=== PATIENT | male | born 1965 | race African-American/Black ===

== ENCOUNTER 2017-05-28 09:03 | Emergency (ER) | payer BC ==
[2017-05-28 09:25] LABS: #Basophils 0.1 thou/uL (0.0-0.2); #Eosinphils 0.4 thou/uL (0.0-0.7); #Lymphocytes 1.3 thou/uL (1.20-3.40); #Monocytes 0.5 thou/uL (0.11-0.59); %Basophils 1.6 % (0.0-1.0); %Eosinophils 10.5 % (0.0-10.0); %Lymphocytes 30.3 % (21.0-51.0); %Monocytes 11.1 % (0.0-10.0); %Neutrophils 46.5 % (42.0-75.0); Hemoglobin 13.5 g/dL (14.0-18.0); Mean Corpuscular HGB CONC 33.4 g/dL (32.0-36.0); Mean Corpuscular Hemoglobin 31.8 pg (27.0-31.0); Mean Corpuscular Volume 95.1 fl (80.0-94.0); Mean Platelet Volume 9.1 fL (7.4-10.4); Platelet Count 205 thou/uL (130-400); RBC Distribution Width 10.4 % (11.5-14.5); Red Blood Cell (RBC) Count 4.24 mill/uL (4.70-6.10); White Blood Cell (WBC) Count 4.2 thou/uL (4.8-10.8)
[2017-05-28 09:43] LABS: ALT (SGPT) 75 U/L (8-55); AST (SGOT) 65 U/L (5-34); Albumin 4.9 g/dL (3.5-5.0); Alkaline Phosphatase 72 U/L (40-150); Anion Gap 11 mmol/L (10-20); BUN (Urea Nitrogen) 16 mg/dL (8.4-25.7); Bilirubin, Total 0.7 mg/dL (0.2-1.2); Calc. Creatinine Clearance 0 mL/min (70-130); Calcium 9.5 mg/dL (7.8-10.44); Carbon Dioxide 29 mmol/L (22-29); Chloride 101 mmol/L (98-107); Estimated GFR-MDRD Greater than 90; Globulin 3.2 g/dL (2.4-3.5); Glucose 111 mg/dL (70-105); Lipase 15 U/L (8-78); Potassium 4.2 mmol/L (3.5-5.1); Protein, Total 8.1 g/dL (6.0-8.3); Sodium 137 mmol/L (136-145)
[2017-05-28 10:14] LABS: Bilirubin Negative (Negative); Blood, Urine Negative (Negative); Clarity CLEAR (Clear); Glucose, Urine (Dipstick) Negative (Negative); Leukocyte Negative (Negative); Nitrite Negative (Negative); Protein, Urine (Dipstick) 30 mg/dL (Neg-Trace); Specific Gravity, Urine 1.024 (1.002-1.036); pH, Urine 6.5 (5.0-9.0)
[2017-05-28 10:17] LABS: Bacteria/HPF None Seen HPF (None Seen); Hyaline Casts/LPF 0-3 HYALINE CAST LPF (0-3 Hyaline); Squamous Epithelial 0-3 HPF (0-3); WBC/HPF 0-3 HPF (0-3)
[2017-05-28] MEDS ORDERED: Lidocaine 1% PF 5 ML VIAL ONE ×2 (11:49→11:52)
[2017-05-28] MEDS ORDERED: cefTRIAXone\\ROCEPHIN 250 MG VIAL ONE (11:49)
[2017-05-28] MEDS ORDERED: Azithromycin 250 MG TAB ONE ×2 (11:49→12:35)
--- NOTE | 2017-05-28 11:51 | ULT ---
BILATERAL TESTICULAR ULTRSOUND WITH DOPPLER: (gamboa scale, color flow, and spectral Doppler) HISTORY: Suprapubic pelvic pain. FINDINGS: The right testis measures 2.9 x 4.2 x 1.9 cm and the left testis measures 3.4 x 4.5 x 2.1 cm. The ri ght epididymis measures 1.3 x 0.7 cm and the left epididymis measures 1.5 x 0.9 cm. No testicular mass or microlithiasis is seen. No epididymal mass is identified. There is good flow to the testes and epididymi. Small bilateral hydroceles are present. IMPRESSION: Small bilateral hydroceles; otherwise, unremarkable exam. POS: [facility]
[2017-05-28 22:24] LABS: Chlamydia by PCR Not Detected (NotDetected); GC by PCR Not Detected (NotDetected)
== END 2017-05-28 12:53 | disposition home or self-care (01) ==
LOC: ERS 09:03
DX: N43.3 Hydrocele, unspecified (principal); R30.0 Dysuria; F17.210 Nicotine dependence, cigarettes, uncomplicated; K51.90 Ulcerative colitis, unspecified, without complications
CPT/HCPCS: 36415; 76870; 80053; 81003; 81015; 83690; 85025; 85652; 86140; 87086; 87491; 87591; 93976; 96372; J0696; J2001

== ENCOUNTER 2019-02-22 16:31 | Emergency (ER) | payer OTHER ==
[2019-02-22 16:55] LABS: #Basophils 0.1 thou/uL (0.0-0.2); #Eosinphils 0.5 thou/uL (0.0-0.7); #Lymphocytes 1.6 thou/uL (1.20-3.40); #Monocytes 0.5 thou/uL (0.11-0.59); #Neutrophils 2.1 thou/uL (1.40-6.50); %Basophils 1.5 % (0.0-1.0); %Eosinophils 9.9 % (0.0-10.0); %Lymphocytes 32.4 % (21.0-51.0); %Monocytes 11.2 % (0.0-10.0); %Neutrophils 44.9 % (42.0-75.0); Hemoglobin 12.1 g/dL (14.0-18.0); Mean Corpuscular HGB CONC 33.6 g/dL (32.0-36.0); Mean Corpuscular Hemoglobin 31.8 pg (27.0-31.0); Mean Corpuscular Volume 94.8 fL (78.0-98.0); Platelet Count 196 thou/uL (130-400); RBC Distribution Width 10.6 % (11.5-14.5); Red Blood Cell (RBC) Count 3.81 mill/uL (4.70-6.10); White Blood Cell (WBC) Count 4.8 thou/uL (4.8-10.8)
[2019-02-22 16:55] LABS: Bilirubin Negative (Negative); Blood, Urine Negative (Negative); Clarity Clear (Clear); Glucose, Urine (Dipstick) Normal (Negative); Leukocyte Negative Leu/uL (Negative); Nitrite Negative (Negative); Protein, Urine (Dipstick) Negative (Neg-Trace); Urobilinogen 3 mg/dL (Less than 2)
[2019-02-22 17:19] LABS: ALT (SGPT) 103 U/L (8-55); AST (SGOT) 67 U/L (5-34); Albumin 4.8 g/dL (3.5-5.0); Alkaline Phosphatase 96 U/L (40-110); Anion Gap 13 mmol/L (10-20); BUN (Urea Nitrogen) 15 mg/dL (8.4-25.7); Bilirubin, Total 0.4 mg/dL (0.2-1.2); Calc. Creatinine Clearance 0 mL/min (70-130); Calcium 9.6 mg/dL (7.8-10.44); Carbon Dioxide 28 mmol/L (22-29); Chloride 103 mmol/L (98-107); Estimated GFR-MDRD Greater than 90; Globulin 3.1 g/dL (2.4-3.5); Glucose 95 mg/dL (70-105); Potassium 3.6 mmol/L (3.5-5.1); Protein, Total 7.9 g/dL (6.0-8.3); Sodium 140 mmol/L (136-145)
== END 2019-02-22 19:45 | disposition home or self-care (01) ==
LOC: ERS 16:31
DX: M19.021 Primary osteoarthritis, right elbow (principal); M19.011 Primary osteoarthritis, right shoulder; M19.031 Primary osteoarthritis, right wrist; K51.90 Ulcerative colitis, unspecified, without complications; F41.9 Anxiety disorder, unspecified; F17.210 Nicotine dependence, cigarettes, uncomplicated; Z79.899 Other long term (current) drug therapy
CPT/HCPCS: 36415; 80053; 81003; 85025; 99283

== ENCOUNTER 2023-01-17 09:17 | Outpatient (CLI) | payer BC, OTHER | END 2023-01-17 09:18 | disposition home or self-care (01) | LOC: BICRAD 09:17 | DX: M17.0 Bilateral primary osteoarthritis of knee (principal); M25.521 Pain in right elbow | CPT/HCPCS: 73565 ==